=== PATIENT | female | born 1965 | race Native Hawaiian/Other Pacific Islander ===

== ENCOUNTER 2019-05-14 07:59 | Day surgery (SDC) | payer OTHER ==
[~2019-05-14] VITALS: Ht 30.5 cm; Wt 0.5 kg
[2019-05-14 08:52] LABS: PLATELET COUNT 292 K/uL (152-353)
[2019-05-14 09:14] LABS: POTASSIUM 3.8 mmol/L (3.6-5.2)
== END 2019-05-14 11:10 ==
LOC: OR 07:59
PROVIDERS: Pain Medicine Interventional Pain Medicine
PROC: 3E0T3BZ Introduction of Anesthetic Agent into Peripheral Nerves and Plexi, Percutaneous Approach (ICD-10-PCS; principal; 2019-05-14)
PROC: 3E0T33Z Introduction of Anti-inflammatory into Peripheral Nerves and Plexi, Percutaneous Approach (ICD-10-PCS; 2019-05-14)
PROC: BR16YZZ Fluoroscopy of Lumbar Facet Joint(s) using Other Contrast (ICD-10-PCS; 2019-05-14)
DX: M47.816 Spondylosis without myelopathy or radiculopathy, lumbar region (principal)
CPT/HCPCS: 80048; 85027; J1100; J2001; J2250; J2405; J2704

== ENCOUNTER 2019-07-23 08:56 | Day surgery (SDC) | payer OTHER ==
[~2019-07-23] VITALS: Ht 162.6 cm; Wt 83.9 kg
[2019-07-23 09:31] LABS: PLATELET COUNT 235 K/uL (152-353)
[2019-07-23 09:48] LABS: POTASSIUM 4.1 mmol/L (3.6-5.2)
== END 2019-07-23 12:17 | disposition home or self-care (01) ==
LOC: OR 08:56
PROVIDERS: Pain Medicine Interventional Pain Medicine
PROC: 3E0T3TZ Introduction of Destructive Agent into Peripheral Nerves and Plexi, Percutaneous Approach (ICD-10-PCS; principal; 2019-07-23)
PROC: BR16YZZ Fluoroscopy of Lumbar Facet Joint(s) using Other Contrast (ICD-10-PCS; 2019-07-23)
DX: M47.817 Spondylosis without myelopathy or radiculopathy, lumbosacral region (principal)
CPT/HCPCS: 80053; 85027; J1170; J2001; J2250; J2405; J2704; J2765

== ENCOUNTER 2019-08-13 08:43 | Day surgery (SDC) | payer OTHER | END 2019-08-13 11:40 | disposition home or self-care (01) | LOC: OR 08:43 | PROC: 3E0T3TZ Introduction of Destructive Agent into Peripheral Nerves and Plexi, Percutaneous Approach (ICD-10-PCS; principal; 2019-08-13) | PROC: BR16YZZ Fluoroscopy of Lumbar Facet Joint(s) using Other Contrast (ICD-10-PCS; 2019-08-13) | DX: M47.817 Spondylosis without myelopathy or radiculopathy, lumbosacral region (principal) | CPT/HCPCS: J2001; J2250; J2405; J2704 ==